=== PATIENT | female | born 1995 | race Caucasian/White ===

== ENCOUNTER 2017-11-18 09:54 | Emergency (ER) | payer BC, MEDICAID ==
[2017-11-18] MEDS ORDERED: Ondansetron 4 MG/2 ML SDV IVPUSH ONE (10:25)
[2017-11-18] MEDS ORDERED: Sodium Chloride 0.9% 1,000 ML IV SCH (10:30)
[2017-11-18] MEDS: Sodium Chloride 0.9% 1,000 ML IV SCH ×2 (10:41→11:48)
[2017-11-18] MEDS ORDERED: Promethazine 12.5 MG in Sodium Chloride 0.9% 50 ML IV STA (12:35)
--- NOTE | 2017-11-18 12:44 | EDM.PDOC ---
ED HPI GENERAL MEDICAL PROBLEM - General Chief Complaint: Gastrointestinal Problem Stated Complaint: DIARRHEA,VOMITTING Time Seen by Provider: 11/18/17 09:55 Source of Information: Reports: Patient, Family History Limitations: Reports: No Limitations - History of Present Illness INITIAL COMMENTS - FREE TEXT/NARRATIVE: 22 y.o.w.f came to the ed after vomiting and having diarrhea for a few days. Diarrhea started first. Denies food poisoning, possible sick contact. No dizziness or light headedness, denied . No F/C BP 100/65 pulse 109 RR 18 Pulse ox 98% Temp 36.4 Onset Date: 11/18/17 Onset Time: 05:00 Duration: Hour(s): Location: Reports: Abdomen Quality: Reports: Dull Severity: Moderate Improves with: Reports: Rest Worsens with: Reports: Movement Context: Reports: Sick Contact Associated Symptoms: Reports: Nausea/Vomiting (Diarrhea) - Related Data Allergies Allergy/AdvReac Type Severity Reaction Status Date / Time cat dander Allergy Mild unknown Uncoded 11/18/17 10:06 dust mites Allergy Mild unknown Uncoded 11/18/17 10:06 Home Meds: Home Meds Budesonide/Formoterol [Symbicort 160-4.5 MCG] 2 puff PO BID 11/18/17 [History] Escitalopram [Lexapro] 20 mg PO BEDTIME 11/18/17 [History] Ondansetron [Zofran ODT] 4 mg PO Q6H PRN #20 tab.dis 11/18/17 [Rx] traZODone HCl [Trazodone HCl] 50 mg PO DAILY PRN 11/18/17 [History] Past Medical History Respiratory History: Reports: Asthma Psychiatric History: Reports: Anxiety, Depression - Past Surgical History Other HEENT Surgeries/Procedures: wisdom teeth removed Social & Family History - Family History Family Medical History: Noncontributory - Tobacco Use Smoking Status *Q: Never Smoker - Caffeine Use Caffeine Use: Reports: Coffee, Soda - Recreational Drug Use Recreational Drug Use: No ED ROS GENERAL - Review of Systems Review Of Systems: See Below Constitutional: Reports: No Symptoms HEENT: Reports: No Symptoms Respiratory: Reports: No Symptoms Cardiovascular: Reports: No Symptoms Endocrine: Reports: No Symptoms GI/Abdominal: Reports: Abdominal Pain (minor) : Reports: No Symptoms Musculoskeletal: Reports: No Symptoms Skin: Reports: No Symptoms Neurological: Reports: No Symptoms Psychiatric: Reports: No Symptoms Hematologic/Lymphatic: Reports: No Symptoms Immunologic: Reports: No Symptoms ED EXAM, GI/ABD - Physical Exam Exam: See Below Exam Limited By: No Limitations General Appearance: Alert, WD/WN, Mild Distress Eyes: Bilateral: Normal Appearance Ears: Normal External Exam Nose: Normal Inspection Throat/Mouth: Normal Inspection Head: Atraumatic, Normocephalic Neck: Normal Inspection, Supple Respiratory/Chest: No Respiratory Distress, Lungs Clear Cardiovascular: Normal Peripheral Pulses, Regular Rate, Rhythm GI/Abdominal Exam: Normal Bowel Sounds, Soft, Non-Tender (Female) Exam: Deferred Rectal (Female) Exam: Deferred Back Exam: Normal Inspection, Full Range of Motion Extremities: Normal Inspection, Normal Range of Motion, Non-Tender Neurological: Alert, Oriented, CN II-XII Intact, Normal Cognition, Normal Gait Psychiatric: Normal Affect, Normal Mood Skin Exam: Warm, Dry, Intact, Normal Color, No Rash Lymphatic: No Adenopathy Course - Vital Signs Text/Narrative:: 22 y.o.w.f came to the ed after vomiting and having diarrhea for a few days. Diarrhea started first. Denies food poisoning, possible sick contact. No dizziness or light headedness, denied . No F/C BP 100/65 pulse 109 RR 18 Pulse ox 98% Temp 36.4 PE: WNWD W F with gastroenteritis. Labs: CBC BMP were nl. Cr was 1.1 Impression: Gastroenetritis, Dehydration Tx: Zofran, NS Reexam: Improved Plan: D/C with instructions Last Recorded V/S: Last Vital Signs Temp 37.6 C 11/18/17 13:28 Pulse 109 H 11/18/17 13:28 Resp 18 11/18/17 13:28 BP 96/55 L 11/18/17 13:28 Pulse Ox 100 11/18/17 13:28 - Orders/Labs/Meds Labs: Laboratory Tests 11/18/17 11/18/17 11/18/17 Range/Units 10:30 10:30 11:18 WBC 7.7 (4.5-12.0) X10-3/uL RBC 5.06 (3.23-5.20) x10(6)uL Hgb 15.2 (11.5-15.5) g/dL Hct 44.2 (30.0-51.3) % MCV 87.2 (80-96) fL MCH 29.9 (27.7-33.6) pg MCHC 34.3 (32.2-35.4) g/dL RDW 11.8 (11.5-15.5) % Plt Count 220 (125-369) X10(3)uL MPV 7.8 (7.4-10.4) fL Neut % (Auto) 80.2 (46-82) % Lymph % (Auto) 5.0 L (13-37) % Briscoe % (Auto) 11.4 (4-12) % Eos % (Auto) 2 (1.0-5.0) % Baso % (Auto) 2 (0-2) % Neut # (Auto) 6.2 (1.6-8.3) # Lymph # (Auto) 0.4 L (0.6-5.0) # Briscoe # (Auto) 0.9 (0.0-1.3) # Eos # (Auto) 0.1 (0.0-0.8) # Baso # (Auto) 0.1 (0.0-0.2) # Sodium 138 (135-145) mmol/L Potassium 3.8 (3.5-5.3) mmol/L Chloride 101 (100-110) mmol/L Carbon Dioxide 27 (21-32) mmol/L BUN 14 (7-18) mg/dL Creatinine 1.1 H (0.55-1.02) mg/dL Est Cr Clr Drug Dosing 94.14 mL/min Estimated GFR (MDRD) > 60 (>60) BUN/Creatinine Ratio 12.7 (9-20) Glucose 100 (80-116) mg/dL Calcium 9.2 (8.6-10.2) mg/dL Urine Color Yellow (YELLOW) Urine Appearance Slightly cloudy (CLEAR) Urine pH 5.0 (5.0-6.5) Ur Specific Meredith 1.020 (1.010-1.025) Urine Protein Negative (NEGATIVE) mg/dL Urine Glucose (UA) Normal (NEGATIVE) mg/dL Urine Ketones 15 H (NEGATIVE) mg/dL Urine Occult Blood Negative (NEGATIVE) Urine Nitrite Negative (NEGATIVE) Urine Bilirubin Small H (NEGATIVE) Urine Urobilinogen Normal (NEGATIVE) mg/dL Ur Leukocyte Esterase Negative (NEGATIVE) Urine WBC 0-5 (0) Ur Squamous Epith Cells Moderate H (NS,R,O) Urine Bacteria Few H (NS) Urine HCG, Qual (NEGATIVE) 11/18/17 Range/Units 11:18 WBC (4.5-12.0) X10-3/uL RBC (3.23-5.20) x10(6)uL Hgb (11.5-15.5) g/dL Hct (30.0-51.3) % MCV (80-96) fL MCH (27.7-33.6) pg MCHC (32.2-35.4) g/dL RDW (11.5-15.5) % Plt Count (125-369) X10(3)uL MPV (7.4-10.4) fL Neut % (Auto) (46-82) % Lymph % (Auto) (13-37) % Briscoe % (Auto) (4-12) % Eos % (Auto) (1.0-5.0) % Baso % (Auto) (0-2) % Neut # (Auto) (1.6-8.3) # Lymph # (Auto) (0.6-5.0) # Briscoe # (Auto) (0.0-1.3) # Eos # (Auto) (0.0-0.8) # Baso # (Auto) (0.0-0.2) # Sodium (135-145) mmol/L Potassium (3.5-5.3) mmol/L Chloride (100-110) mmol/L Carbon Dioxide (21-32) mmol/L BUN (7-18) mg/dL Creatinine (0.55-1.02) mg/dL Est Cr Clr Drug Dosing mL/min Estimated GFR (MDRD) (>60) BUN/Creatinine Ratio (9-20) Glucose (80-116) mg/dL Calcium (8.6-10.2) mg/dL Urine Color (YELLOW) Urine Appearance (CLEAR) Urine pH (5.0-6.5) Ur Specific Meredith (1.010-1.025) Urine Protein (NEGATIVE) mg/dL Urine Glucose (UA) (NEGATIVE) mg/dL Urine Ketones (NEGATIVE) mg/dL Urine Occult Blood (NEGATIVE) Urine Nitrite (NEGATIVE) Urine Bilirubin (NEGATIVE) Urine Urobilinogen (NEGATIVE) mg/dL Ur Leukocyte Esterase (NEGATIVE) Urine WBC (0) Ur Squamous Epith Cells (NS,R,O) Urine Bacteria (NS) Urine HCG, Qual Negative (NEGATIVE) Meds: Medications Discontinued Medications Generic Name Dose Route Start Last Admin Trade Name Freq PRN Reason Stop Dose Admin Sodium Chloride 1,000 mls @ 999 mls/hr 11/18/17 10:30 11/18/17 11:42 Normal Saline IV Infused ASDIRECTED EMELINA Infusion Sodium Chloride 1,000 mls @ 999 mls/hr 11/18/17 10:30 11/18/17 11:49 Normal Saline IV 999 mls/hr ASDIRECTED EMELINA Administration Promethazine HCl 12.5 mg/ 50.5 mls @ 200 mls/hr 11/18/17 12:35 11/18/17 12:45 Sodium Chloride IV 11/18/17 12:50 200 mls/hr ONETIME STA Administration Ondansetron HCl 8 mg 11/18/17 10:25 11/18/17 10:46 Zofran IVPUSH 11/18/17 10:26 8 mg ONETIME ONE Administration Departure - Departure Time of Disposition: 13:13 Disposition: Home, Self-Care 01 Condition: Good Clinical Impression: Gastroenteritis, Dehydration - Discharge Information Prescriptions: Ondansetron [Zofran ODT] 4 mg PO Q6H PRN #20 tab.dis PRN Reason: Nausea/Vomiting Instructions: Nausea and Vomiting, Adult, [id number], Dizziness, [id number] , Diarrhea, Adult, [id number] Referrals: Eula Márquez NP [Primary Care Provider] - Forms: ED Department Discharge Additional Instructions: Please advance diet as tolerated, please take Zofran for nausea and vomiting, please f/u in one week with your PMD if not better. Please come back to the ED if your symptoms get acutely worse.
[2017-11-18 13:31] VITALS: BP 96/55
== END 2017-11-18 13:30 | disposition home or self-care (01) ==
LOC: FB.ED 09:54
DX: K52.9 Noninfective gastroenteritis and colitis, unspecified (principal); J45.909 Unspecified asthma, uncomplicated; Z91.048 Other nonmedicinal substance allergy status
CPT/HCPCS: 80048; 81001; 81025; 85025; 96361; 96365; 96375; 99284; J2405; J2550; J7040; J7050

== ENCOUNTER 2018-05-30 21:32 | Emergency (ER) | payer BC, OTHER ==
--- NOTE | 2018-05-30 21:49 | EDM.PDOC ---
ED HPI GENERAL MEDICAL PROBLEM - General Stated Complaint: LT SWOLLEN EYES Time Seen by Provider: 05/30/18 21:46 Source of Information: Reports: Patient - History of Present Illness INITIAL COMMENTS - FREE TEXT/NARRATIVE: Left eye swelling,sudden onset. Usually happens once a month. Due to allergies. No headache. No fever. Has used some "allergy eye drops" and reports improvement. - Related Data Allergies Allergy/AdvReac Type Severity Reaction Status Date / Time cat dander Allergy Mild unknown Uncoded 11/18/17 10:06 dust mites Allergy Mild unknown Uncoded 11/18/17 10:06 Home Meds: Home Meds Budesonide/Formoterol [Symbicort 160-4.5 MCG] 2 puff PO BID 11/18/17 [History] Escitalopram [Lexapro] 20 mg PO BEDTIME 11/18/17 [History] Ondansetron [Zofran ODT] 4 mg PO Q6H PRN #20 tab.dis 11/18/17 [Rx] traZODone HCl [Trazodone HCl] 50 mg PO DAILY PRN 11/18/17 [History] Past Medical History Respiratory History: Reports: Asthma Psychiatric History: Reports: Anxiety, Depression - Past Surgical History Other HEENT Surgeries/Procedures: wisdom teeth removed Social & Family History - Family History Family Medical History: Noncontributory - Caffeine Use Caffeine Use: Reports: Coffee, Soda ED ROS GENERAL - Review of Systems Review Of Systems: ROS reveals no pertinent complaints other than HPI. ED EXAM GENERAL W FULL EYE - Physical Exam Exam: See Below Exam Limited By: No Limitations Eye Exam: Left Eye: Conjunctival Injection, Periorbital Changes, Bilateral Eye: PERRL Eyelids: Left: Edema Conjunctiva & Sclera: Right: Normal Appearance, Left: Conjunctival Edema Extraocular Movements: Bilateral: Intact Departure - Departure Time of Disposition: 21:48 Disposition: Home, Self-Care 01 Clinical Impression: Acute allergic conjunctivitis - Discharge Information Referrals: Jamari Lafleur MD [Primary Care Provider] - - Problem List & Annotations (1) Acute allergic conjunctivitis SNOMED Code(s): 787044354, 668608320 Code(s): H10.10 - ACUTE ATOPIC CONJUNCTIVITIS, UNSPECIFIED EYE Status: Acute Qualifiers: Laterality: left Qualified Code(s): H10.12 - Acute atopic conjunctivitis, left eye - Problem List Review Problem List Initiated/Reviewed/Updated: Yes - Assessment/Plan Plan: Antihistamines,warm compress. Note for work
[2018-05-30 21:56] VITALS: BP 114/77
== END 2018-05-30 22:01 | disposition home or self-care (01) ==
LOC: FB.ED 21:32
DX: H10.12 Acute atopic conjunctivitis, left eye (principal); Z91.09 Other allergy status, other than to drugs and biological substances; Z79.899 Other long term (current) drug therapy
CPT/HCPCS: 99282